=== PATIENT | male | born 1995 | race Caucasian/White ===

== ENCOUNTER 2022-03-24 23:47 | Emergency (ER) | payer OTHER ==
[2022-03-25 00:32] VITALS: BMI 22.2
[2022-03-25] MEDS ORDERED: SODIUM CHLORIDE 0.9% 500 ML INFUS.BAG IV ONE (01:23)
[2022-03-25] MEDS ORDERED: FAMOTIDINE 20 MG/50 ML IVPB 20 MG/50 ML MG IVPB ONE ×2 (01:23→02:57)
[2022-03-25] MEDS ORDERED: ACETAMINOPHEN 1000 MG/100 ML BAG IVPB ONE (01:23)
[2022-03-25] MEDS ORDERED: ACETAMINOPHEN INJECTION 100 ML IVPB ONE (02:57)
[2022-03-25 03:43] LABS: BASO % 0.2 % (0-2.0); EOS % 0.3 % (0-4.5); HEMATOCRIT 38.2 % (35.4-49); HEMOGLOBIN 12.9 GM/dL (11.7-16.9); LYMPH % 13.3 % (8-40); MCH 29.5 pg (25.7-33.7); MCHC 33.7 g/dl (32.0-35.9); MEAN CELL VOLUME 87.7 fl (80-96); MEAN PLT VOLUME 7.3 fl (7.5-11.1); MONO % 7.5 % (3.8-10.2); NEUT % 78.7 % (42.8-82.8); PLATELET COUNT 355 10^3/uL (134-434); RBC 4.36 M/mm3 (4.00-5.60); RDW 12.6 % (11.9-15.9); WHITE BLOOD COUNT 17.2 K/mm3 (4.0-10.0)
[2022-03-25 03:49] LABS: INR 1.28 (0.83-1.09); PROTHROMBIN TIME (PATIENT) 14.7 SEC (9.7-13.0)
[2022-03-25 03:52] LABS: ACTIVATED PTT 30.1 SECONDS (25.2-36.5)
[2022-03-25 04:03] LABS: CALCIUM 8.8 mg/dL (8.5-10.1)
[2022-03-25 04:04] LABS: BLOOD UREA NITROGEN 4.8 mg/dL (7-18)
[2022-03-25 04:07] LABS: CREATININE 0.7 mg/dL (0.55-1.3)
[2022-03-25 04:08] LABS: BILIRUBIN,TOTAL 0.3 mg/dL (0.2-1); TOT PROT 7.1 g/dl (6.4-8.2)
[2022-03-25 05:41] VITALS: BP 104/57; PULSE 65; RESP 16; TEMP 97.5
[2022-03-25] MEDS ORDERED: predniSONE 20 MG TABLET (UD) PO ONE (05:58)
[2022-03-25 07:26] LABS: ERYTHROCYTE SEDIMENTATION RATE 69 mm/hr (0-10)
== END 2022-03-25 06:44 | disposition home or self-care (01) ==
LOC: JER 23:47
PROC: 3E033GC Introduction of Other Therapeutic Substance into Peripheral Vein, Percutaneous Approach (ICD-10-PCS; principal; 2022-03-24)
DX: K50.90 Crohn's disease, unspecified, without complications (principal)
CPT/HCPCS: 36415; 71046-TC-FY; 74177-TC; 80053; 83605; 83690; 83735; 85025; 85610; 85651; 85730; 86140; 86850; 86900; 86901; 93005; 93010; 99285-25; Q9967

== ENCOUNTER 2022-08-04 22:25 | Inpatient (IN) | payer OTHER ==
[2022-08-04] MEDS ORDERED: SODIUM CHLORIDE 1,000 ML IV STA (23:35)
[2022-08-04] MEDS ORDERED: ACETAMINOPHEN 1000 MG/100 ML BAG IVPB ONE (23:38)
[2022-08-04] MEDS ORDERED: ACETAMINOPHEN INJECTION 100 ML IVPB ONE (23:50)
[2022-08-05 00:12] LABS: HEMATOCRIT 37.9 % (35.4-49); HEMOGLOBIN 12.7 GM/dL (11.7-16.9); MCH 28.7 pg (25.7-33.7); MCHC 33.5 g/dl (32.0-35.9); MEAN CELL VOLUME 85.8 fl (80-96); MEAN PLT VOLUME 6.7 fl (7.5-11.1); PLATELET COUNT 485 10^3/uL (134-434); RBC 4.42 M/mm3 (4.00-5.60); RDW 12.9 % (11.9-15.9); WHITE BLOOD COUNT 20.1 K/mm3 (4.0-10.0)
[2022-08-05] MEDS ORDERED: FAMOTIDINE 20 MG/50 ML IVPB 20 MG/50 ML MG IVPB ONE ×2 (00:22→01:49)
[2022-08-05] MEDS ORDERED: LACTATED RINGERS SOLUTION 1000 ML INFUS.BAG IV ONE (00:22)
[2022-08-05] MEDS ORDERED: ONDANSETRON 4 MG/2 ML VIAL IVPUSH ONE (00:22)
[2022-08-05] MEDS ORDERED: MAG HYDROX/AL HYDROX/SIMETH 30 ML UNIT-DOSE CUP PO ONE (00:22)
[2022-08-05 00:35] LABS: CALCIUM 8.8 mg/dL (8.5-10.1)
[2022-08-05 00:36] LABS: ALBUMIN 2.8 g/dl (3.4-5.0); BLOOD UREA NITROGEN 4.9 mg/dL (7-18); MAGNESIUM 1.6 mg/dL (1.8-2.4)
[2022-08-05 00:39] LABS: CREATININE 0.8 mg/dL (0.55-1.3)
[2022-08-05 00:40] LABS: BILIRUBIN,TOTAL 0.3 mg/dL (0.2-1); TOT PROT 7.2 g/dl (6.4-8.2)
[2022-08-05] MEDS ORDERED: PIPERACILLIN/TAZOB 3.375 GM 3.375 GM in DEXTROSE 5%-WATER - 50 ML IVPB ONE (01:18)
[2022-08-05] MEDS ORDERED: MAGNESIUM SULF 50% (8.12 MEQ/2 ML-1 GM VIAL) IVPB ONE (01:29)
[2022-08-05] MEDS ORDERED: KCL 10 MEQ IVPB 10 MEQ/100 ML INFUS.BAG IVPB SCH (01:30)
[2022-08-05] MEDS ORDERED: ONDANSETRON 4 MG/2 ML VIAL ONE (01:49)
[2022-08-05] MEDS ORDERED: MAG HYDROX/AL HYDROX/SIMETH 30 ML UNIT-DOSE CUP ONE (01:50)
[2022-08-05] MEDS ORDERED: POTASSIUM CHLORIDE TABS 20 MEQ TABLET.ER (FP) PO ONE ×2 (02:06→03:56)
[2022-08-05 03:36] LABS: ANISOCYTOSIS 0; MACROCYTOSIS 0
[2022-08-05] MEDS ORDERED: PIPERACILLIN/TAZOB 3.375 GM 3.375 GM/50 ML BAG IVPB ONE ×2 (03:57→10:26)
[2022-08-05] MEDS ORDERED: MAGNESIUM 1GM/D5W - 1 GM/100 ML IVPB IVPB ONE (03:57)
[2022-08-05] MEDS ORDERED: methylPREDNISolone NA SUCC 125 MG/2 ML VIAL IVPB ONE (07:48)
[2022-08-05] MEDS ORDERED: methylPREDNISolone NA SUCC 40 MG/1 ML VIAL ONE (08:14)
[2022-08-05] MEDS ORDERED: ACETAMINOPHEN 325 MG TABLET (FP) PO PRN ×2 (09:19→09:28)
[2022-08-05] MEDS ORDERED: morphine CARPU-JECT 2 MG/1 ML DISP.SYRIN IVPUSH PRN (09:19)
[2022-08-05 09:30] LABS: PH,URINE 6.5 (5.0-8.0); URINE APPEARANCE CLEAR; URINE BILIRUBIN NEGATIVE (NEGATIVE); URINE COLOR YELLOW; URINE GLUCOSE (UA) NEGATIVE (NEGATIVE); URINE KETONE 1+ (NEGATIVE); URINE LEUK ESTERASE NEGATIVE (NEGATIVE); URINE NITRITE NEGATIVE (NEGATIVE); URINE PROTEIN TRACE (NEGATIVE); URINE UROBILINOGEN 0.2 mg/dL (0.2-1.0)
[2022-08-05] MEDS ORDERED: PANTOPRAZOLE SODIUM 40 MG VIAL IVPUSH SCH (10:00)
[2022-08-05] MEDS ORDERED: ONDANSETRON 4 MG/2 ML VIAL IVPUSH PRN (10:12)
[2022-08-05] MEDS ORDERED: ENOXAPARIN NA (PORCINE) 40 MG/0.4 ML DISP.SYRIN SQ ONE (10:25)
[2022-08-05] MEDS ORDERED: PANTOPRAZOLE SODIUM 40 MG VIAL ONE (10:26)
[2022-08-05] MEDS: PIPERACILLIN/TAZOB 3.375 GM 3.375 GM in DEXTROSE 5%-WATER - 50 ML IVPB SCH ×3 (10:47→21:07)
[2022-08-05] MEDS: LACTATED RINGERS SOLUTION 1,000 ML IV SCH (10:47)
[2022-08-05] MEDS: ENOXAPARIN NA (PORCINE) 40 MG/0.4 ML DISP.SYRIN SQ SCH (10:48)
[2022-08-05 10:57] LABS: HEMATOCRIT 34.5 % (35.4-49); HEMOGLOBIN 11.7 GM/dL (11.7-16.9); MCH 28.9 pg (25.7-33.7); MCHC 33.9 g/dl (32.0-35.9); MEAN CELL VOLUME 85.3 fl (80-96); PLATELET COUNT 450 10^3/uL (134-434); RBC 4.05 M/mm3 (4.00-5.60); WHITE BLOOD COUNT 18.5 K/mm3 (4.0-10.0)
[2022-08-05] MEDS ORDERED: ACETAMINOPHEN 325 MG TABLET (FP) ONE (11:09)
[2022-08-05 17:34] LABS: ALBUMIN 2.6 g/dl (3.4-5.0); BLOOD UREA NITROGEN 4.1 mg/dL (7-18); CALCIUM 8.6 mg/dL (8.5-10.1)
[2022-08-05 17:37] LABS: PHOSPHOROUS 3.9 mg/dL (2.5-4.9)
[2022-08-05 17:38] LABS: CREATININE 0.7 mg/dL (0.55-1.3)
[2022-08-05 17:39] LABS: BILIRUBIN,TOTAL 0.3 mg/dL (0.2-1); TOT PROT 6.7 g/dl (6.4-8.2)
[2022-08-06] MEDS: PIPERACILLIN/TAZOB 3.375 GM 3.375 GM in DEXTROSE 5%-WATER - 50 ML IVPB SCH ×4 (02:51→20:37)
[2022-08-06] MEDS: ENOXAPARIN NA (PORCINE) 40 MG/0.4 ML DISP.SYRIN SQ SCH (09:09)
[2022-08-06] MEDS ORDERED: methylPREDNISolone NA SUCC 40 MG/1 ML VIAL IVPUSH SCH (10:00)
[2022-08-06] MEDS: LACTATED RINGERS SOLUTION 1,000 ML IV SCH (10:13)
[2022-08-06 10:38] LABS: HEMATOCRIT 33.4 % (35.4-49); HEMOGLOBIN 11.6 GM/dL (11.7-16.9); MCH 29.8 pg (25.7-33.7); MCHC 34.7 g/dl (32.0-35.9); MEAN CELL VOLUME 85.9 fl (80-96); PLATELET COUNT 465 10^3/uL (134-434); RBC 3.88 M/mm3 (4.00-5.60); RDW 12.9 % (11.9-15.9); WHITE BLOOD COUNT 18.9 K/mm3 (4.0-10.0)
[2022-08-06 10:52] LABS: CALCIUM 8.7 mg/dL (8.5-10.1)
[2022-08-06 10:53] LABS: ALBUMIN 2.4 g/dl (3.4-5.0); BLOOD UREA NITROGEN 5.5 mg/dL (7-18); MAGNESIUM 1.9 mg/dL (1.8-2.4)
[2022-08-06 10:56] LABS: CREATININE 0.7 mg/dL (0.55-1.3); PHOSPHOROUS 3.6 mg/dL (2.5-4.9)
[2022-08-06 10:57] LABS: BILIRUBIN,TOTAL 0.2 mg/dL (0.2-1); TOT PROT 6.4 g/dl (6.4-8.2)
[2022-08-07] MEDS: PIPERACILLIN/TAZOB 3.375 GM 3.375 GM in DEXTROSE 5%-WATER - 50 ML IVPB SCH ×4 (02:40→20:58)
[2022-08-07] MEDS: LACTATED RINGERS SOLUTION 1,000 ML IV SCH ×2 (05:04→10:09)
[2022-08-07 10:03] LABS: BASO % 0.3 % (0-2.0); EOS % 0.2 % (0-4.5); HEMATOCRIT 34.2 % (35.4-49); HEMOGLOBIN 11.5 GM/dL (11.7-16.9); LYMPH % 16.5 % (8-40); MCH 28.8 pg (25.7-33.7); MCHC 33.6 g/dl (32.0-35.9); MEAN CELL VOLUME 85.7 fl (80-96); MEAN PLT VOLUME 6.9 fl (7.5-11.1); MONO % 7.7 % (3.8-10.2); NEUT % 75.3 % (42.8-82.8); PLATELET COUNT 462 10^3/uL (134-434); RBC 3.99 M/mm3 (4.00-5.60); RDW 12.9 % (11.9-15.9); WHITE BLOOD COUNT 13.8 K/mm3 (4.0-10.0)
[2022-08-07] MEDS: ENOXAPARIN NA (PORCINE) 40 MG/0.4 ML DISP.SYRIN SQ SCH (10:10)
[2022-08-07 10:23] LABS: CALCIUM 8.5 mg/dL (8.5-10.1)
[2022-08-07 10:24] LABS: ALBUMIN 2.3 g/dl (3.4-5.0); MAGNESIUM 1.8 mg/dL (1.8-2.4)
[2022-08-07 10:26] LABS: PHOSPHOROUS 3.7 mg/dL (2.5-4.9)
[2022-08-07 10:27] LABS: CREATININE 0.7 mg/dL (0.55-1.3)
[2022-08-07 10:28] LABS: BILIRUBIN,TOTAL 0.3 mg/dL (0.2-1); TOT PROT 6.2 g/dl (6.4-8.2)
[2022-08-07] MEDS ORDERED: POTASSIUM CHLORIDE ORAL LIQUID 20 MEQ/15 ML PO ONE (12:11)
[2022-08-07 14:05] VITALS: BMI 20.7
[2022-08-08] MEDS: PIPERACILLIN/TAZOB 3.375 GM 3.375 GM in DEXTROSE 5%-WATER - 50 ML IVPB SCH ×3 (02:32→16:16)
[2022-08-08] MEDS: ENOXAPARIN NA (PORCINE) 40 MG/0.4 ML DISP.SYRIN SQ SCH (10:08)
[2022-08-08 11:10] LABS: BASO % 0.4 % (0-2.0); EOS % 0.3 % (0-4.5); HEMATOCRIT 35.9 % (35.4-49); HEMOGLOBIN 12.1 GM/dL (11.7-16.9); LYMPH % 14.3 % (8-40); MCH 29.1 pg (25.7-33.7); MCHC 33.8 g/dl (32.0-35.9); MEAN PLT VOLUME 6.8 fl (7.5-11.1); MONO % 8.4 % (3.8-10.2); NEUT % 76.6 % (42.8-82.8); PLATELET COUNT 468 10^3/uL (134-434); RBC 4.17 M/mm3 (4.00-5.60); WHITE BLOOD COUNT 12.5 K/mm3 (4.0-10.0)
[2022-08-08 11:25] LABS: ALBUMIN 2.4 g/dl (3.4-5.0); BLOOD UREA NITROGEN 4.3 mg/dL (7-18); CALCIUM 8.7 mg/dL (8.5-10.1)
[2022-08-08 11:28] LABS: PHOSPHOROUS 2.8 mg/dL (2.5-4.9)
[2022-08-08 11:29] LABS: CREATININE 0.7 mg/dL (0.55-1.3)
[2022-08-08 11:30] LABS: BILIRUBIN,TOTAL 0.3 mg/dL (0.2-1); TOT PROT 6.5 g/dl (6.4-8.2)
[2022-08-08] MEDS ORDERED: POTASSIUM CHLORIDE TABS 20 MEQ TABLET.ER (FP) PO ONE (11:34)
[2022-08-08 12:12] LABS: ERYTHROCYTE SEDIMENTATION RATE 73 mm/hr (0-10)
[2022-08-08 14:37] VITALS: BP 125/70; PULSE 70; RESP 20; TEMP 98.2
== END 2022-08-08 16:16 | disposition home or self-care (01) | DRG 245 ==
LOC: JER 22:25 → JERBED 08-05 04:06 → J5S 08-05 13:41
PROVIDERS: ADMIT Internal Medicine; ATTEND Internal Medicine
DX: K50.90 Crohn's disease, unspecified, without complications (principal); R65.10 Systemic inflammatory response syndrome (SIRS) of non-infectious origin without acute organ dysfunction; E46 Unspecified protein-calorie malnutrition; E83.42 Hypomagnesemia; E87.1 Hypo-osmolality and hyponatremia; D72.829 Elevated white blood cell count, unspecified; E87.6 Hypokalemia; F12.90 Cannabis use, unspecified, uncomplicated; R14.0 Abdominal distension (gaseous); Z68.20 Body mass index [BMI] 20.0-20.9, adult
CPT/HCPCS: 0241U-QW; 36415; 71046-TC-FY; 74177-TC; 80053; 81003; 83605; 83690; 83735; 84100; 85025; 85027; 85651; 86140; 86708; 86709; 87040; 87045; 87046; 87324; 87449; 87798; 93005; 93010; 99285-25; Q9967

== ENCOUNTER 2024-04-24 13:16 | Emergency (ER) | payer OTHER ==
[2024-04-24 13:24] VITALS: BP 117/67; PULSE 60; RESP 18; TEMP 98.4; BMI 24.0
[2024-04-24] MEDS ORDERED: ACETAMINOPHEN 500 MG TABLET (FP) ONE (14:46)
[2024-04-24] MEDS: ACETAMINOPHEN 500 MG TABLET (FP) PO ONE (14:49)
== END 2024-04-24 16:40 | disposition short-term general hospital (02) ==
LOC: JERFT 13:16
DX: S01.111A Laceration without foreign body of right eyelid and periocular area, initial encounter (principal); W50.0XXA Accidental hit or strike by another person, initial encounter; Y93.67 Activity, basketball
CPT/HCPCS: 70486-TC; 99284-25